=== PATIENT | female | born 1935 | race Asian ===

== ENCOUNTER 2016-09-26 17:05 | Inpatient (IN) | payer OTHER ==
[~2016-09-26] VITALS: Ht 142.2 cm; Wt 34.9 kg
[~2016-09-26 17:05] MED LIST: ALTOPREV40 MG PO; ATARAX10 MG PO; ATENOLOL100 M1 PO; CITALOPRAM HBR20 M1 PO; DIOVAN80 MG PO; FUROSEMIDE20 MG PO; LOVASTATIN40 MG PO; METFORMIN HCL500 MG PO; TEMAZEPAM15 M1 PO; VITAMIN D; ZOFRAN ODT4 MG PO
[2016-09-26 18:45] LABS: HEMATOCRIT 31.8 % (36.0-46.0); MCH 30.4 PG (29.0-34.0); MCV 92.2 FL (83-99); MEAN PLAT.VOLUME 11.7 uM^3 (9.5-12.4); PLATELET COUNT 167 K/uL (156-360); RBC DIS.WIDTH-CV 15.2 % (11.8-14.6); RBC DIS.WIDTH-SD 51.1 % (39-53); RED BLOOD COUNT 3.45 M/uL (3.80-5.20)
[2016-09-26 19:00] LABS: CHLORIDE 103 mEq/L (99-109); POTASSIUM 2.5 mEq/L (3.7-5.4); SODIUM 145 mEq/L (136-147)
[2016-09-26 19:03] LABS: GLUCOSE 123 mg/dL (70-99)
[2016-09-26 19:04] LABS: ANION GAP 13 MEQ/L (2-14)
[2016-09-26 19:05] LABS: TOTAL BILIRUBIN 0.9 mg/dL (0.0-1.0)
[2016-09-26 19:06] LABS: ALKALINE PHOSPHATASE 40 IU/L (3-129); GFR ESTIMATE (CALCULATED) 42 mL/min/
[2016-09-26 19:07] LABS: UREA NITROGEN (BUN) 15 mg/dL (9-23)
[2016-09-26 20:24] LABS: ADD MIUA? YES; BILIRUBIN NEGATIVE; BLOOD NEGATIVE; COLOR STRAW ((YELLOW)); GLUCOSE (STRIP) NEGATIVE; KETONES NEGATIVE; LEUKOCYTES TRACE; NITRITE NEGATIVE; PROTEIN (STRIP) NEGATIVE; SPECIFIC GRAVITY 1.006 (1.000-1.030); UROBILINOGEN 0.2 MG/DL (0.2-1.0)
[2016-09-26] MEDS ORDERED: VITAMIN D2000 UNI1 PO (20:34)
[2016-09-26 20:49] LABS: BACTERIA RARE /HPF; EPITHELIAL CELLS NONE SEEN /HPF; MUCUS TRACE /LPF; RED BLOOD CELLS 0-5 /HPF (0-5); UCUL ADDED? NO
[2016-09-26 20:58] LABS: TROP-I INTERPRETATION NEGATIVE; TROPONIN-I < 0.01 ng/mL (0.0-0.30)
[2016-09-27] VITALS (7 sets, daily range): BP systolic 139–177; BP diastolic 61–81
[2016-09-27 06:53] LABS: HEMATOCRIT 27.6 % (36.0-46.0); MCV 93.9 FL (83-99); MEAN PLAT.VOLUME 12.2 uM^3 (9.5-12.4); PLATELET COUNT 138 K/uL (156-360); RBC DIS.WIDTH-CV 15.4 % (11.8-14.6); RBC DIS.WIDTH-SD 52.8 % (39-53); RED BLOOD COUNT 2.94 M/uL (3.80-5.20); WHITE BLOOD COUNT 5.7 K/uL (4.1-10.2)
[2016-09-27 07:13] LABS: ANION GAP 9 MEQ/L (2-14); CHLORIDE 107 MEQ/L (99-109); GFR ESTIMATE (CALCULATED) 46 mL/min/; GLUCOSE 122 mg/dL (70-99); POTASSIUM 2.6 MEQ/L (3.7-5.4); SAMPLE HEMOLYSIS CHECK 0; SAMPLE ICTERIC CHECK 0; SAMPLE LIPEMIA CHECK 0; SODIUM 144 MEQ/L (136-147); UREA NITROGEN (BUN) 14 mg/dL (9-23)
[2016-09-27 15:26] LABS: ANION GAP 6 MEQ/L (2-14); CHLORIDE 108 MEQ/L (99-109); GFR ESTIMATE (CALCULATED) 42 mL/min/; GLUCOSE 131 mg/dL (70-99); SAMPLE HEMOLYSIS CHECK 0; SAMPLE ICTERIC CHECK 0; SAMPLE LIPEMIA CHECK 0; SODIUM 142 MEQ/L (136-147); UREA NITROGEN (BUN) 15 mg/dL (9-23)
[2016-09-27 15:32] LABS: POTASSIUM 3.7 MEQ/L (3.7-5.4)
[2016-09-28 06:56] LABS: HEMATOCRIT 28.7 % (36.0-46.0); MCH 31.3 PG (29.0-34.0); MCHC 33.1 G/DL (30.0-36.0); MCV 94.4 FL (83-99); MEAN PLAT.VOLUME 12.2 uM^3 (9.5-12.4); PLATELET COUNT 140 K/uL (156-360); RBC DIS.WIDTH-CV 15.7 % (11.8-14.6); RBC DIS.WIDTH-SD 54.1 % (39-53); RED BLOOD COUNT 3.04 M/uL (3.80-5.20); WHITE BLOOD COUNT 5.4 K/uL (4.1-10.2)
[2016-09-28 07:25] LABS: ANION GAP 8 MEQ/L (2-14); CHLORIDE 111 MEQ/L (99-109); GFR ESTIMATE (CALCULATED) 46 mL/min/; IRON 93 MCG/DL (35-150); POTASSIUM 3.9 MEQ/L (3.7-5.4); SAMPLE HEMOLYSIS CHECK 0; SAMPLE ICTERIC CHECK 0; SAMPLE LIPEMIA CHECK 0; SODIUM 144 MEQ/L (136-147); UREA NITROGEN (BUN) 15 mg/dL (9-23)
[2016-09-28 07:36] LABS: GLUCOSE 97 mg/dL (70-99)
[2016-09-28 07:53] VITALS: BP 183/77
[2016-09-28 07:56] LABS: FERRITIN 70 NG/ML (10-291)
[2016-09-28 11:08] VITALS: BP 186/77
[2016-09-28 15:10] VITALS: BP 171/86
[2016-09-28 19:35] VITALS: BP 128/72
[2016-09-28 21:15] LABS: POINT-OF-CARE USER ID BHSKTD
[2016-09-28 23:39] VITALS: BP 161/93
[2016-09-29 03:54] VITALS: BP 142/67
[2016-09-29 07:55] LABS: POINT-OF-CARE METER ID UU14188625
[2016-09-29 08:00] VITALS: BP 142/72
[2016-09-29 08:36] LABS: HEMATOCRIT 30.2 % (36.0-46.0); MCH 30.9 PG (29.0-34.0); MCHC 32.8 G/DL (30.0-36.0); MCV 94.4 FL (83-99); MEAN PLAT.VOLUME 11.6 uM^3 (9.5-12.4); PLATELET COUNT 143 K/uL (156-360); RBC DIS.WIDTH-CV 15.8 % (11.8-14.6); RBC DIS.WIDTH-SD 55.1 % (39-53); WHITE BLOOD COUNT 5.6 K/uL (4.1-10.2)
[2016-09-29 09:06] LABS: ANION GAP 7 MEQ/L (2-14); CHLORIDE 111 MEQ/L (99-109); GFR ESTIMATE (CALCULATED) 46 mL/min/; GLUCOSE 102 mg/dL (70-99); POTASSIUM 4.7 MEQ/L (3.7-5.4); SAMPLE HEMOLYSIS CHECK 0; SAMPLE ICTERIC CHECK 0; SAMPLE LIPEMIA CHECK 0; SODIUM 143 MEQ/L (136-147); UREA NITROGEN (BUN) 14 mg/dL (9-23)
[2016-09-29 11:11] VITALS: BP 170/76
[2016-09-29] MEDS ORDERED: BENADRYL50 MG PO (11:29)
[2016-09-29] MEDS ORDERED: REMERON15 M2 PO (11:29)
[2016-09-29] MEDS ORDERED: NORVASC10 MG PO (11:44)
[2016-09-29] MEDS ORDERED: NORVASC2.5 MG PO (12:02)
== END 2016-09-29 13:52 | disposition home health service (06) | DRG 641 ==
LOC: EME 17:05 → 5SOUTH 22:27 → EDOF 22:27 → 5SOUTH 09-27 00:38
PROVIDERS: Internal Medicine; Physician Assistant; Physician Assistant Medical
DX: E87.6 Hypokalemia (principal); T50.1X5A Adverse effect of loop [high-ceiling] diuretics, initial encounter; E11.22 Type 2 diabetes mellitus with diabetic chronic kidney disease; I12.9 Hypertensive chronic kidney disease with stage 1 through stage 4 chronic kidney disease, or unspecified chronic kidney disease; N18.3 Chronic kidney disease, stage 3 (moderate); R00.1 Bradycardia, unspecified; D64.9 Anemia, unspecified; R63.0 Anorexia; G47.00 Insomnia, unspecified; R53.1 Weakness; K59.00 Constipation, unspecified; M19.90 Unspecified osteoarthritis, unspecified site; F32.9 Major depressive disorder, single episode, unspecified; H18.419 Arcus senilis, unspecified eye; Z87.442 Personal history of urinary calculi
CPT/HCPCS: 80048; 80048 91; 80053; 81003; 82607; 82728; 82746; 82948; 83540; 83735; 84466; 84484; 85027; 93005; 94799; 99281; 99285; J1200; J1650; J1815; J3480; J7030

== ENCOUNTER 2017-04-22 12:55 | Emergency (ER) | payer OTHER ==
[~2017-04-22] VITALS: Ht 157.5 cm; Wt 48.8 kg
[~2017-04-22 12:55] MED LIST changes: +BENADRYL50 MG PO; +NORVASC10 MG PO; +NORVASC2.5 MG PO; +REMERON15 M2 PO; +VITAMIN D2000 UNI1 PO
[2017-04-22 14:36] LABS: HEMATOCRIT 32.1 % (36.0-46.0); MCH 31.4 PG (29.0-34.0); MEAN PLAT.VOLUME 10.8 uM^3 (9.5-12.4); PLATELET COUNT 167 K/uL (156-360); RBC DIS.WIDTH-CV 13.6 % (11.8-14.6); RBC DIS.WIDTH-SD 46.6 % (39-53); RED BLOOD COUNT 3.38 M/uL (3.80-5.20); WHITE BLOOD COUNT 7.5 K/uL (4.1-10.2)
[2017-04-22 14:48] LABS: CHLORIDE 109 mEq/L (99-109); POTASSIUM 4.7 mEq/L (3.7-5.4); SODIUM 140 mEq/L (136-147)
[2017-04-22 14:49] LABS: GLUCOSE 120 mg/dL (70-99)
[2017-04-22 14:51] LABS: ANION GAP 9 MEQ/L (2-14)
[2017-04-22 14:53] LABS: GFR ESTIMATE (CALCULATED) 35 mL/min/
[2017-04-22 14:54] LABS: UREA NITROGEN (BUN) 28 mg/dL (9-23)
[2017-04-22 15:12] VITALS: BP 131/53
== END 2017-04-22 15:16 | disposition home or self-care (01) ==
LOC: EME 12:55
PROVIDERS: Physician Assistant
DX: K92.1 Melena (principal); I12.9 Hypertensive chronic kidney disease with stage 1 through stage 4 chronic kidney disease, or unspecified chronic kidney disease; E11.22 Type 2 diabetes mellitus with diabetic chronic kidney disease; N18.3 Chronic kidney disease, stage 3 (moderate); Z79.84 Long term (current) use of oral hypoglycemic drugs; Z87.442 Personal history of urinary calculi
CPT/HCPCS: 80048; 85027; 99281; 99284